=== PATIENT | male | born 1950 | race Asian ===

== ENCOUNTER 2020-01-14 18:12 | Inpatient (IN) | payer MEDICARE ==
[~2020-01-14] VITALS: Ht 170.2 cm; Wt 64.0 kg
[2020-01-14 18:19] VITALS: BP 145/80
--- NOTE | 2020-01-14 18:23 | Emergency Room Report ---
History of Present Illness General Chief Complaint: Altered Mental Status Source: Patient, EMS Present Illness HPI Disclaimer: Please note that this report is being documented using DRAGON technology. This can lead to erroneous entry secondary to incorrect interpretation by the dictating instrument. HPI: 69-year-old male on no medical history presents by EMS for suspected overdose. The patient was found laying on the floor at his hotel by hotel staff. He was not responsive. Next to him was an empty bottle of temazepam, 30 mg tablets with a prescription for 30 pills. EMS also brought a note written an unknown language that was found next to the patient and the bottle of pills. Patient had sonorous respirations en route, EMS noted cough. He arrives slightly febrile. He awakens to painful stimuli. Cannot obtain any verbal response from patient. PMH: Unable to obtain PSH: Unable to obtain Allergies: Unable to obtain Social Hx: Unable to obtain Allergies: Coded Allergies: UNABLE TO ASSESS (Unverified , 01/14/20) COVID-19 Screening Contact w/high risk pt: No Experienced COVID-19 symptoms?: Yes COVID-19 Testing performed [employer]ER: No Nursing Documentation-PMH Past Medical History: No History, Except For Review of Systems All Other Systems: negative except mentioned in HPI Physical Exam Vital Signs Date Time Temp Pulse Resp B/P (MAP) Pulse Ox O2 Delivery O2 Flow Rate FiO2 01/14/20 18:09 98.1 91 16 125/65 (85) 95 Room Air General: Somnolent, no verbal response HEENT: NC/AT. EOMI. Cardiovascular: Borderline tachycardia. No murmur appreciated. Resp: Tachypnea. Sonorous respirations. Intermittent cough. Abdomen: Abdomen is soft, nondistended. Nontender Skin: Intact. No abrasions, laceration or rash over the exposed skin MSK: Normal tone and bulk. Moving all extremities. No obvious deformity. Neuro: Somnolent. GCS 9. Procedures Critical Care Time Critical Care Time Total critical care time: Approximately 45 minutes Due to a high probability of clinically significant, life threatening deterioration, the patient required the highest level of preparedness to intervene emergently and I personally spent this critical care time directly and personally managing the patient. This critical care time included obtaining a history, examining the patient, pulse oximetry, ordering and reviewing studies , ordering treatments, evaluating response to treatment and updating management plan as needed, frequent reassessment and discussion with other providers as well as arranging for ultimate disposition. This critical to care time was performed to assess and manage the high probability of life-threatening deterioration that could result in multiorgan failure. This critical care time is separate from the separately billable procedures and treating other patients. Medical Decision Making Diagnostic Impression: Primary Impression: Altered mental status Additional Impressions: Febrile illness Elevated WBC count Benzodiazepine overdose ER Course 69-year-old male brought in for suspected benzodiazepine overdose with altered mental status. Differential includes was not limited to intentional ingestion, intoxication, electrolyte abnormality, occult injury. Broad labs obtained and returned showing an elevated white count but otherwise chemistry, tox screen, urinalysis within normal limits. CT scan of the head did not show evidence of acute trauma or other significant findings. Patient's heart rate has improved however the patient was febrile by axillary temperature. COVID-19 negative. No evidence of infiltrate on chest x-ray. Cultures and lactate sent. Patient was given ceftriaxone. 1 of our technicians was able to read Khmer and coated the note left by the patient. It states that the patient was tested negative for COVID-19, he apologized to hospital staff for the inconvenience, includes his family is phone numbers. We contacted family who stated that he has been severely depressed and had a suicide attempt last month. Patient will require psychiatric evaluation and inpatient admission. His mentation improves but is not returned to baseline. He makes eye contact and is trying to respond though I suspect there is a language barrier as well. He will be admitted for further work-up and monitoring. Discussed with poison control who recommends further close monitoring and additional benzodiazepines should he become agitated or show signs of acute withdrawal. Admitted to panel physician, Dr. Lynch. Laboratory Tests Test 01/14/20 18:30 White Blood Count 18.0 K/UL (4.8-10.8) H Red Blood Count 4.32 M/UL (4.70-6.10) L Hemoglobin 13.0 G/DL (14.2-18.0) L Hematocrit 40.2 % (42.0-52.0) L Mean Corpuscular Volume 93 FL (80-99) Mean Corpuscular Hemoglobin 30.1 PG (27.0-31.0) Mean Corpuscular Hemoglobin Concent 32.4 G/DL (32.0-36.0) Red Cell Distribution Width 12.8 % (11.6-14.8) Platelet Count 210 K/UL (150-450) Mean Platelet Volume 10.4 FL (6.5-10.1) H Neutrophils (%) (Auto) 86.9 % (45.0-75.0) H Lymphocytes (%) (Auto) 8.0 % (20.0-45.0) L Monocytes (%) (Auto) 4.0 % (1.0-10.0) Eosinophils (%) (Auto) 0.3 % (0.0-3.0) Basophils (%) (Auto) 0.8 % (0.0-2.0) Urine Color Pale yellow Urine Appearance Clear Urine pH 5 (4.5-8.0) Urine Specific [place] 1.030 (1.005-1.035) Urine Protein Negative (NEGATIVE) Urine Glucose (UA) Negative (NEGATIVE) Urine Ketones Negative (NEGATIVE) Urine Blood Negative (NEGATIVE) Urine Nitrite Negative (NEGATIVE) Urine Bilirubin Negative (NEGATIVE) Urine Urobilinogen Normal MG/DL (0.0-1.0) Urine Leukocyte Esterase Negative (NEGATIVE) Sodium Level 145 MMOL/L (136-145) Potassium Level 3.9 MMOL/L (3.5-5.1) Chloride Level 107 MMOL/L (98-107) Carbon Dioxide Level 26 MMOL/L (21-32) Anion Gap 12 mmol/L (5-15) Blood Urea Nitrogen 34 mg/dL (7-18) H Creatinine 1.0 MG/DL (0.55-1.30) Estimated Glomerular Filtration Rate > 60 mL/min (>60) Glucose Level 168 MG/DL (74-106) H Calcium Level 9.3 MG/DL (8.5-10.1) Total Bilirubin 0.4 MG/DL (0.2-1.0) Aspartate Amino Transferase (AST) 22 U/L (15-37) Alanine Aminotransferase (ALT) 15 U/L (12-78) Alkaline Phosphatase 45 U/L (46-116) L Troponin I 0.000 ng/mL (0.000-0.056) Total Protein 8.0 G/DL (6.4-8.2) Albumin 4.2 G/DL (3.4-5.0) Globulin 3.8 g/dL Albumin/Globulin Ratio 1.1 (1.0-2.7) Salicylates Level 1.7 ug/mL (2.8-20) L Urine Opiates Screen Negative (NEGATIVE) Acetaminophen Level < 2 MCG/ML (10-30) L Urine Barbiturates Screen Negative (NEGATIVE) Phencyclidine (PCP) Screen Negative (NEGATIVE) Urine Amphetamines Screen Negative (NEGATIVE) Urine Benzodiazepines Screen Negative (NEGATIVE) Urine Cocaine Screen Negative (NEGATIVE) Urine Marijuana (THC) Screen Negative (NEGATIVE) Serum Alcohol < 3 mg/dL Microbiology Date/Time Source Procedure Growth Status 01/14/20 18:30 Nasopharynx SARS-CoV-2 RdRp Gene Assay - Final Complete EKG Diagnostic Results EKG Time: 18:36 Rate: tachycardiac Other Impression Sinus tachycardia, left axis deviation, incomplete right bundle branch block pattern. No ST segment changes. Rhythm Strip Diag. Results Rhythm Strip Time: 18:36 EP Interpretation: yes Rate: 109 Rhythm: NSR Last Vital Signs Date Time Temp Pulse Resp B/P (MAP) Pulse Ox O2 Delivery O2 Flow Rate FiO2 01/14/20 18:09 98.1 91 16 125/65 (85) 95 Room Air Disposition: ADMITTED INPATIENT Condition: Serious Nathan Jha MD Jan 14, 2020 18:23
[2020-01-14 19:00] LABS: HEMATOCRIT 40.2 % (42.0-52.0); MEAN CORPUSCULAR VOLUME 93 FL (80-99); PLATELET COUNT 210 K/UL (150-450); RED BLOOD COUNT 4.32 M/UL (4.70-6.10); RED CELL DISTRIBUTION WIDTH 12.8 % (11.6-14.8)
[2020-01-14 19:02] LABS: BASOPHILS % (AUTO) 0.8 % (0.0-2.0); EOSINOPHILS % (AUTO) 0.3 % (0.0-3.0); NEUTROPHILS % (AUTO) 86.9 % (45.0-75.0)
[2020-01-14 19:05] LABS: APPEARANCE,URINE CLEAR; BILIRUBIN, URINE NEGATIVE (NEGATIVE); COLOR,URINE PALE YELLOW; GLUCOSE, URINE (UA) NEGATIVE (NEGATIVE); KETONES,URINE NEGATIVE (NEGATIVE); LEUKOCYTE ESTERASE ,URINE NEGATIVE (NEGATIVE); NITRITE,URINE NEGATIVE (NEGATIVE); PH,URINE 5 (4.5-8.0); PROTEIN,URINE NEGATIVE (NEGATIVE); UROBILINOGEN,URINE NORMAL MG/DL (0.0-1.0)
[2020-01-14 19:12] LABS: ANION GAP 12 mmol/L (5-15); BLOOD UREA NITROGEN 34 mg/dL (7-18); CALCIUM 9.3 MG/DL (8.5-10.1); CARBON DIOXIDE 26 MMOL/L (21-32); CHLORIDE 107 MMOL/L (98-107); POTASSIUM 3.9 MMOL/L (3.5-5.1); SODIUM 145 MMOL/L (136-145)
[2020-01-14 19:17] LABS: ALANINE AMINOTRANSFERASE 15 U/L (12-78); ALBUMIN 4.2 G/DL (3.4-5.0); ALBUMIN/GLOBULIN RATIO 1.1 (1.0-2.7); ALKALINE PHOSPHATASE 45 U/L (46-116); ASPARTATE AMINO TRANSFERASE 22 U/L (15-37); BILIRUBIN,TOTAL 0.4 MG/DL (0.2-1.0)
[2020-01-14 19:45] VITALS: BP 153/90
[2020-01-14] MEDS ORDERED: cefTRIAXone 1 GM in NS 55 ML IVPB ONE (19:45)
[2020-01-14] MEDS ORDERED: Acetaminophen 650 MG SUPP RECTAL ONE (19:45)
--- NOTE | 2020-01-14 20:28 | Diagnostic Imaging Report ---
EXAM: XR Chest, 1 View CLINICAL HISTORY: COUGH TECHNIQUE: Frontal view of the chest. COMPARISON: None. FINDINGS: Lungs: Right infrahilar atelectasis. Pleural space: Unremarkable. No pneumothorax. Heart: Unremarkable. No cardiomegaly. Mediastinum: Unremarkable. Bones/joints: Degenerative disease of the right shoulder. Vasculature: Atherosclerotic disease of aorta. Fullness of the central markings which may indicate mild vascular congestion. Other findings: Decreased inspiration. IMPRESSION: Right infrahilar atelectasis. Possible mild vascular congestion versus vascular crowding from decreased inspiration.
--- NOTE | 2020-01-14 20:34 | Diagnostic Imaging Report ---
EXAM: CT Head Without Intravenous Contrast CLINICAL HISTORY: AMS TECHNIQUE: Axial computed tomography images of the head/brain without intravenous contrast. CTDI is 53.4 mGy and DLP is 1045.5 mGy-cm. One or more of the following dose reduction techniques were used: automated exposure control, adjustment of the mA and/or kV according to patient size, use of iterative reconstruction technique. COMPARISON: None. FINDINGS: Brain: Mild to moderate generalized brain atrophy. Decreased attenuation involving deep white matter compatible with microangiopathic white matter disease. No hemorrhage. Ventricles: Unremarkable. No ventriculomegaly. Bones/joints: Unremarkable. No acute fracture. Soft tissues: Unremarkable. Sinuses: Unremarkable as visualized. No acute sinusitis. Mastoid air cells: Unremarkable as visualized. No mastoid effusion. IMPRESSION: Chronic changes as described. No acute intracranial hemorrhage or space-occupying lesion.
[2020-01-14 21:15] VITALS: BP 126/79
[2020-01-14] MEDS ORDERED: Acetaminophen 500mg (ES) tab ORAL PRN (21:30)
[2020-01-14] MEDS: D5NS 1,000 ML IV SCH (21:30)
[2020-01-15] VITALS: BP 104/62
[2020-01-15 04:00] VITALS: BP 134/71
[2020-01-15] MEDS: Piperacillin/Tazobactam 3.375 GM in NS 110 ML IVPB SCH ×3 (06:00→21:09)
[2020-01-15 07:36] LABS: HEMATOCRIT 40.7 % (42.0-52.0); HEMOGLOBIN 13.2 G/DL (14.2-18.0); MEAN CORPUSCULAR VOLUME 91 FL (80-99); PLATELET COUNT 191 K/UL (150-450); RED BLOOD COUNT 4.48 M/UL (4.70-6.10); RED CELL DISTRIBUTION WIDTH 12.2 % (11.6-14.8); WHITE BLOOD COUNT 14.6 K/UL (4.8-10.8)
[2020-01-15 07:55] LABS: ALANINE AMINOTRANSFERASE 16 U/L (12-78); ALBUMIN 3.6 G/DL (3.4-5.0); ALKALINE PHOSPHATASE 39 U/L (46-116); ANION GAP 11 mmol/L (5-15); ASPARTATE AMINO TRANSFERASE 35 U/L (15-37); BILIRUBIN,TOTAL 0.5 MG/DL (0.2-1.0); BLOOD UREA NITROGEN 29 mg/dL (7-18); CALCIUM 9.3 MG/DL (8.5-10.1); CARBON DIOXIDE 24 MMOL/L (21-32); CHLORIDE 110 MMOL/L (98-107); CREATININE 1.1 MG/DL (0.55-1.30); POTASSIUM 3.9 MMOL/L (3.5-5.1); SODIUM 145 MMOL/L (136-145)
[2020-01-15 08:00] VITALS: BP 116/65
--- NOTE | 2020-01-15 08:44 | History and Physical Report ---
DATE OF ADMISSION: 01/14/2020 CHIEF COMPLAINT: Suicide attempt. HISTORY OF PRESENT ILLNESS: The patient is a 69-year-old male. He has a history of hypertension and diabetes. According to family members and EMS, he was apparently found outside of his motel room with an empty bottle of Restoril. He had apparently told family members that he intended to hurt himself. According to the patient's son, he has been depressed since being isolated at home because of COVID restrictions. On evaluation in the emergency room, the patient was hypoxic and placed on O2. He is currently on 15 liters non-rebreather. He had a low-grade temperature. Chest x-ray showed a possible right-sided infiltrate. Head CT was also unremarkable. He is now admitted for further evaluation and care. PAST MEDICAL HISTORY: History of diabetes and hypertension. PAST SURGICAL HISTORY: None. CURRENT MEDICATIONS: The patient does not recall. ALLERGIES: None. FAMILY HISTORY: None. SOCIAL HISTORY: There is no known history of tobacco, ethanol, or drugs. REVIEW OF SYSTEMS: GENERAL: No fevers or chills. HEENT: No headaches or visual changes. CARDIOPULMONARY: No chest pain or shortness of breath. GASTROINTESTINAL: No nausea or vomiting. GENITOURINARY: No urgency or frequency. MUSCULOSKELETAL: No joint pain or swelling. NEUROLOGIC: No history of seizures. PHYSICAL EXAMINATION: VITAL SIGNS: Temperature 99.3, pulse 93, respirations 20, and blood pressure 134/71. GENERAL: The patient is well developed, in no apparent distress. HEART: Regular rate and rhythm. LUNGS: Significant for right-sided rales. ABDOMEN: Soft, nontender, nondistended. EXTREMITIES: Without clubbing or cyanosis. The patient moves all four extremities. NEUROLOGIC: His sensation is intact. He is somewhat anxious. LABORATORY DATA: Sodium 145, potassium 3.9, chloride 106, bicarb 26, BUN 34, and creatinine 1. White count was 18,000, hemoglobin 13. ASSESSMENT: This is a 69-year-old male with a history of hypertension and diabetes, admitted with suicide attempt as well as likely aspiration pneumonia. PLAN: 1. Sitter. 2. Psychiatric consultation. 3. Supplemental oxygen. 4. IV antibiotics. 5. Monitor blood sugars. 6. Plan of care has been discussed with the patient's son. Serg Lynch M.D. DR: JACKY JOB#: [id number] CC:
[2020-01-15] MEDS: Heparin 5000 units/ml inj SUBQ SCH ×2 (09:08→21:12)
[2020-01-15] MEDS: D5NS 1,000 ML IV SCH (10:53)
--- NOTE | 2020-01-15 11:59 | Consultation ---
DATE OF CONSULTATION: 01/15/2020 INFECTIOUS DISEASE CONSULTATION CONSULTING PHYSICIAN: Mary Monte MD. REFERRING PHYSICIAN: Segr Lynch MD. REASON FOR CONSULTATION: Aspiration pneumonia. HISTORY OF PRESENTING ILLNESS: This is a 69-year-old gentleman with history of diabetes and hypertension, who was apparently found outside his motel room with an empty bottle of Restoril. Apparently, he tried to hurt himself. He has been depressed and has been isolated. He was found to have pneumonia. There was a concern for aspiration and an Infectious Diseases consultation has been obtained for antibiotics. PAST MEDICAL HISTORY: 1. History of diabetes. 2. Hypertension. SOCIAL HISTORY: No history of smoking, alcohol, or drug use. FAMILY HISTORY: Noncontributory. REVIEW OF SYSTEMS: RESPIRATORY: No fever, chills, cough, shortness of breath, or chest pain. CARDIAC: No chest pain. No palpitation. No dizziness. No syncope. GASTROINTESTINAL: No nausea. No vomiting. No abdominal pain or diarrhea. MEDICATIONS: As an inpatient, he is on subcutaneous heparin, Protonix, Zosyn, Tylenol, and Zofran. ALLERGIES: Unknown. PHYSICAL EXAMINATION: VITAL SIGNS: Temperature 97.8, T-max of 101.4, pulse 87 respiratory rate 22, and blood pressure 116/65. O2 saturation of 90% on 15 liters of oxygen. HEENT: Pupils are equally reactive to light and accommodation. Mouth appears clean without thrush. NECK: Supple. No adenopathy. No JVD. CARDIOVASCULAR: Regular rate and rhythm. No murmurs. LUNGS: Clear to auscultation bilaterally. No crackles. No wheezes. ABDOMEN: Soft, nontender. No organomegaly. EXTREMITIES: No cyanosis, no clubbing, no edema. LABORATORY AND DIAGNOSTIC DATA: White count of 18 yesterday, white count of 14.6 today; hemoglobin 13.2; hematocrit 40.7; MCV 91; platelet count of 191,000 with neutrophils of 86%. Sodium 145, potassium 3.9, chloride 110, bicarb 24, BUN 29, creatinine 1.1. Glucose 167. Calcium 9.3. Total bilirubin 0.5, AST 35, ALT 16, and alkaline phosphatase 39. Total protein 7.2, albumin 3.6. UA is showing nitrite negative, LE negative. On 01/14/2020, COVID-19 test is negative. Chest x-ray showing right infrahilar atelectasis, possible mild congestion. CT head showing no acute hemorrhage, chronic changes noted. ASSESSMENT: This is a 69-year-old gentleman with history of diabetes and hypertension, who was found outside his motel room with a empty bottle of Restoril. Apparently, he was trying to hurt himself and now comes in hypoxic and is found to have, 1. Possible aspiration pneumonia. He is on 15 liters on non-rebreather mask. 2. He is COVID-19 negative. 3. Diabetes. 4. Hypertension. PLAN: 1. Continue Zosyn. 2. We will order sputum for Gram stain and culture. 3. We will follow up cultures and adjust antibiotics accordingly. I would like to thank Dr. Lynch for this consultation. Mary Monte M.D. DR: DEEPTI JOB#: [id number] CC:
[2020-01-15 12:00] VITALS: BP 117/68
[2020-01-15 16:00] VITALS: BP 116/65
--- NOTE | 2020-01-15 16:19 | Cardiology Progress Note ---
Subjective DATE OF SERVICE: Jan 15, 2020 Very weak, but alert Tolerating po intake No N/V/D +cough noted MONITOR: sinus tachycardia to NSR Objective Last 24 Hour Vital Signs Date Time Temp Pulse Resp B/P (MAP) Pulse Ox O2 Delivery O2 Flow Rate FiO2 01/15/20 16:00 97.8 87 22 116/65 (82) 90 01/15/20 12:00 90 01/15/20 12:00 98.8 83 22 117/68 (84) 99 01/15/20 08:05 Non-Rebreather 15.0 01/15/20 08:00 86 01/15/20 08:00 97.8 87 22 116/65 (82) 90 01/15/20 04:00 93 01/15/20 04:00 99.3 93 20 134/71 (92) 93 01/15/20 01:47 Non-Rebreather 15.0 01/15/20 00:00 100.8 89 22 104/62 (76) 93 01/14/20 23:40 81 01/14/20 22:05 99.0 94 21 126/79 98 Non-Rebreather 15.0 01/14/20 21:15 99.0 94 21 126/79 98 Non-Rebreather 15.0 01/14/20 20:33 101.4 01/14/20 19:45 101.0 134 26 153/90 95 Non-Rebreather 15.0 01/14/20 19:10 101.0 01/14/20 18:19 106 30 145/80 98 Non-Rebreather 15.0 01/14/20 18:19 106 22 Room Air 01/14/20 18:09 98.1 91 16 125/65 (85) 95 Room Air ROS: unchanged from my dictation for 01/14/20 HEENT: normal ENT inspection - dry MM's RHYTHM: NSR, ST LUNGS: diminished breath sounds, right-sided rhonchi CARDIAC: normal rate, regular rhythm, normal S1 and S2 ABDOMEN: normal bowel sounds, soft EXTREMITIES: no calf tenderness, No edema Laboratory Tests Test 01/14/20 18:30 01/15/20 05:35 White Blood Count 18.0 K/UL (4.8-10.8) H 14.6 K/UL (4.8-10.8) H Red Blood Count 4.32 M/UL (4.70-6.10) L 4.48 M/UL (4.70-6.10) L Hemoglobin 13.0 G/DL (14.2-18.0) L 13.2 G/DL (14.2-18.0) L Hematocrit 40.2 % (42.0-52.0) L 40.7 % (42.0-52.0) L Mean Corpuscular Volume 93 FL (80-99) 91 FL (80-99) Mean Corpuscular Hemoglobin 30.1 PG (27.0-31.0) 29.4 PG (27.0-31.0) Mean Corpuscular Hemoglobin Concent 32.4 G/DL (32.0-36.0) 32.4 G/DL (32.0-36.0) Red Cell Distribution Width 12.8 % (11.6-14.8) 12.2 % (11.6-14.8) Platelet Count 210 K/UL (150-450) 191 K/UL (150-450) Mean Platelet Volume 10.4 FL (6.5-10.1) H 10.3 FL (6.5-10.1) H Neutrophils (%) (Auto) 86.9 % (45.0-75.0) H % (45.0-75.0) Lymphocytes (%) (Auto) 8.0 % (20.0-45.0) L % (20.0-45.0) Monocytes (%) (Auto) 4.0 % (1.0-10.0) % (1.0-10.0) Eosinophils (%) (Auto) 0.3 % (0.0-3.0) % (0.0-3.0) Basophils (%) (Auto) 0.8 % (0.0-2.0) % (0.0-2.0) Urine Color Pale yellow Urine Appearance Clear Urine pH 5 (4.5-8.0) Urine Specific [place] 1.030 (1.005-1.035) Urine Protein Negative (NEGATIVE) Urine Glucose (UA) Negative (NEGATIVE) Urine Ketones Negative (NEGATIVE) Urine Blood Negative (NEGATIVE) Urine Nitrite Negative (NEGATIVE) Urine Bilirubin Negative (NEGATIVE) Urine Urobilinogen Normal MG/DL (0.0-1.0) Urine Leukocyte Esterase Negative (NEGATIVE) Sodium Level 145 MMOL/L (136-145) 145 MMOL/L (136-145) Potassium Level 3.9 MMOL/L (3.5-5.1) 3.9 MMOL/L (3.5-5.1) Chloride Level 107 MMOL/L (98-107) 110 MMOL/L (98-107) H Carbon Dioxide Level 26 MMOL/L (21-32) 24 MMOL/L (21-32) Anion Gap 12 mmol/L (5-15) 11 mmol/L (5-15) Blood Urea Nitrogen 34 mg/dL (7-18) H 29 mg/dL (7-18) H Creatinine 1.0 MG/DL (0.55-1.30) 1.1 MG/DL (0.55-1.30) Estimat Glomerular Filtration Rate > 60 mL/min (>60) > 60 mL/min (>60) Glucose Level 168 MG/DL (74-106) H 167 MG/DL (74-106) H Calcium Level 9.3 MG/DL (8.5-10.1) 9.3 MG/DL (8.5-10.1) Total Bilirubin 0.4 MG/DL (0.2-1.0) 0.5 MG/DL (0.2-1.0) Aspartate Amino Transf (AST/SGOT) 22 U/L (15-37) 35 U/L (15-37) Alanine Aminotransferase (ALT/SGPT) 15 U/L (12-78) 16 U/L (12-78) Alkaline Phosphatase 45 U/L (46-116) L 39 U/L (46-116) L Troponin I 0.000 ng/mL (0.000-0.056) Total Protein 8.0 G/DL (6.4-8.2) 7.2 G/DL (6.4-8.2) Albumin 4.2 G/DL (3.4-5.0) 3.6 G/DL (3.4-5.0) Globulin 3.8 g/dL 3.6 g/dL Albumin/Globulin Ratio 1.1 (1.0-2.7) 1.0 (1.0-2.7) Salicylates Level 1.7 ug/mL (2.8-20) L Urine Opiates Screen Negative (NEGATIVE) Acetaminophen Level < 2 MCG/ML (10-30) L Urine Barbiturates Screen Negative (NEGATIVE) Phencyclidine (PCP) Screen Negative (NEGATIVE) Urine Amphetamines Screen Negative (NEGATIVE) Urine Benzodiazepines Screen Negative (NEGATIVE) Urine Cocaine Screen Negative (NEGATIVE) Urine Marijuana (THC) Screen Negative (NEGATIVE) Serum Alcohol < 3 mg/dL Differential Total Cells Counted 100 Neutrophils % (Manual) 75 % (45-75) Lymphocytes % (Manual) 17 % (20-45) L Monocytes % (Manual) 2 % (1-10) Eosinophils % (Manual) 0 % (0-3) Basophils % (Manual) 0 % (0-2) Band Neutrophils 6 % (0-8) Platelet Estimate Adequate Platelet Morphology Normal Red Blood Cell Morphology Normal Lactic Acid Level 1.40 mmol/L (0.4-2.0) Microbiology Date/Time Source Procedure Growth Status 01/14/20 18:30 Nasopharynx SARS-CoV-2 RdRp Gene Assay - Final Complete Assessment/Plan Assessment/Plan Aspiration PNA Sinus Tachycardia No clinical signs of acute CHF Probable chronic diastolic CHF Mild dehydration/hypernatremia NIDDM with rising glucose Negative urine tox screen Hypertension Hypothyroidism Hypotonic IVF - dextrose discont'd Sputum culture Abx per ID Swallow eval Trend BNP Repeat CXR Cont'd telemetry Check TSH Dieudonne Maldonado MD Jan 15, 2020 16:19
[2020-01-15] MEDS ORDERED: NovoLOG Insulin Flexpen SUBQ SCH (16:50)
[2020-01-15] MEDS: NovoLOG Insulin Flexpen SUBQ SCH ×2 (17:00→21:15)
[2020-01-15] MEDS: Potassium Chloride 20 MEQ in 1/2 NS 1000ml 1,000 ML IV SCH (17:11)
[2020-01-15 20:00] VITALS: BP 118/64
[2020-01-16] VITALS: BP 119/66
[2020-01-16 04:00] VITALS: BP 101/55
[2020-01-16] MEDS: Piperacillin/Tazobactam 3.375 GM in NS 110 ML IVPB SCH (05:57)
[2020-01-16] MEDS: Potassium Chloride 20 MEQ in 1/2 NS 1000ml 1,000 ML IV SCH ×2 (05:58→20:36)
[2020-01-16] MEDS: NovoLOG Insulin Flexpen SUBQ SCH ×4 (06:17→20:38)
[2020-01-16 07:25] LABS: BASOPHILS % (AUTO) 0.6 % (0.0-2.0); EOSINOPHILS % (AUTO) 2.2 % (0.0-3.0); HEMATOCRIT 31.1 % (42.0-52.0); HEMOGLOBIN 10.5 G/DL (14.2-18.0); LYMPHOCYTES % (AUTO) 12.6 % (20.0-45.0); MEAN CORPUSCULAR VOLUME 90 FL (80-99); MONOCYTES % (AUTO) 3.3 % (1.0-10.0); NEUTROPHILS % (AUTO) 81.3 % (45.0-75.0); PLATELET COUNT 153 K/UL (150-450); RED BLOOD COUNT 3.47 M/UL (4.70-6.10); RED CELL DISTRIBUTION WIDTH 11.9 % (11.6-14.8); WHITE BLOOD COUNT 15.7 K/UL (4.8-10.8)
--- NOTE | 2020-01-16 07:30 | Consultation ---
DATE OF CONSULTATION: CONSULTING PHYSICIAN: Dean Ferris M.D. HISTORY OF PRESENT ILLNESS: This is a 69-year-old [place] male with a history of depression and anxiety, who has been admitted to the hospital status post overdose on his Restoril pills. The patient has a history of hypertension and diabetes. The patient was found outside of his motel room with an empty bottle of Restoril but he is stating he did not want to kill himself or attempt any suicide. He stated that he had difficulty sleeping. He was minimizing his symptoms. He initially stated that he is not depressed, that he is doing well, and then he stated that he has been having more depressed due to COVID situation. He appeared depressed, anhedonia, worthlessness, however, he is minimizing his symptoms. PAST PSYCHIATRIC HISTORY: He stated that he has a history of depression and anxiety. He has been taking Restoril for insomnia. He is not on any other psychotropic medication. PAST MEDICAL HISTORY: Hypertension. ALLERGIES: No known drug allergies. SUBSTANCE ABUSE HISTORY: No known history of illicit drugs or alcohol. Denying social drinking as well. MENTAL STATUS EXAMINATION: The patient is alert and oriented times self, place, situation. He is . His mood is depressed. Affect is flat. Thought process, linear and goal oriented. Thought content, denies any suicidal or homicidal ideation. Cognition is improved. Insight and judgment is fair. ASSESSMENT: [place] I Major depressive disorder. Anxiety disorder. [place] II Deferred. [place] III Status post overdose on Restoril. [place] IV Low. [place] V 50 PLAN: 1. Lexapro 10 mg in the morning. 2. Remeron 7.5 at bedtime. 3. DC . 4. We will continue to follow and readjust the medications. Dean Ferris M.D. DR: SHIVANI JOB#: [id number] CC:
[2020-01-16 08:00] VITALS: BP 130/64
[2020-01-16 08:16] LABS: ALANINE AMINOTRANSFERASE 16 U/L (12-78); ALBUMIN 2.9 G/DL (3.4-5.0); ALBUMIN/GLOBULIN RATIO 0.9 (1.0-2.7); ALKALINE PHOSPHATASE 40 U/L (46-116); ANION GAP 9 mmol/L (5-15); ASPARTATE AMINO TRANSFERASE 30 U/L (15-37); BILIRUBIN,TOTAL 0.3 MG/DL (0.2-1.0); BLOOD UREA NITROGEN 20 mg/dL (7-18); CALCIUM 8.7 MG/DL (8.5-10.1); CARBON DIOXIDE 25 MMOL/L (21-32); CHLORIDE 110 MMOL/L (98-107); CREATININE 1.2 MG/DL (0.55-1.30); POTASSIUM 3.7 MMOL/L (3.5-5.1); SODIUM 144 MMOL/L (136-145)
[2020-01-16] MEDS: Heparin 5000 units/ml inj SUBQ SCH ×2 (08:41→20:39)
--- NOTE | 2020-01-16 08:42 | General Progress Note ---
Assessment/Plan Problem List: (1) Aspiration pneumonia ICD Codes: J69.0 - Pneumonitis due to inhalation of food and vomit SNOMED: 688233213 (2) Sepsis ICD Codes: A41.9 - Sepsis, unspecified organism SNOMED: 08551091 (3) Elevated WBC count ICD Codes: D72.829 - Elevated white blood cell count, unspecified SNOMED: 053438611, 472150581 (4) Benzodiazepine overdose ICD Codes: T42.4X1A - Poisoning by benzodiazepines, accidental (unintentional) , initial encounter SNOMED: 071934138, 367870558 (5) Febrile illness ICD Codes: R50.9 - Fever, unspecified SNOMED: 795707562, 287882308 (6) Altered mental status ICD Codes: R41.82 - Altered mental status, unspecified SNOMED: 499765809, 899019337 Status: stable Assessment/Plan: cont iv abx wean fio2 check swallow eval monitor cxr follow up cultures iv abx per ID dvt/stress ulcer prophylaxis psych rx thyroid replacement Subjective ROS Limited/Unobtainable: No Constitutional: Reports: malaise, weakness HEENT: Reports: no symptoms Cardiovascular: Reports: no symptoms Respiratory: Reports: cough, shortness of breath Gastrointestinal/Abdominal: Reports: no symptoms Genitourinary: Reports: no symptoms Neurologic/Psychiatric: Reports: anxiety, depressed Endocrine: Reports: no symptoms Hematologic/Lymphatic: Reports: no symptoms Allergies: Coded Allergies: No Known Allergies (Unverified , 01/15/20) All Systems: reviewed and negative except above Subjective no events. remains on facemask at 10L. was on 15L yesterday. has been more cooperative with care. WBC remains elevated. labs reviewed. tsh elevated Objective Last 24 Hour Vital Signs Date Time Temp Pulse Resp B/P (MAP) Pulse Ox O2 Delivery O2 Flow Rate FiO2 01/16/20 04:00 96.6 73 16 101/55 (70) 100 01/16/20 04:00 74 01/16/20 00:00 88 01/16/20 00:00 97.3 77 18 119/66 (83) 98 01/15/20 21:00 Non-Rebreather 10.0 01/15/20 20:00 97.7 78 20 118/64 (82) 97 01/15/20 20:00 81 01/15/20 16:00 78 01/15/20 16:00 97.8 87 22 116/65 (82) 90 01/15/20 12:00 90 01/15/20 12:00 98.8 83 22 117/68 (84) 99 Intake and Output 01/15/20 01/16/20 19:00 07:00 Intake Total 446.25 ml 750 ml Balance 446.25 ml 750 ml Intake Oral 320 ml IV Total 126.25 ml 750 ml # Voids 2 2 # Bowel Movements 2 2 Laboratory Tests 01/16/20 05:32: White Blood Count 15.7H, Red Blood Count 3.47L, Hemoglobin 10.5L, Hematocrit 31.1L, Mean Corpuscular Volume 90, Mean Corpuscular Hemoglobin 30.3, Mean Corpuscular Hemoglobin Concent 33.8, Red Cell Distribution Width 11.9, Platelet Count 153, Mean Platelet Volume 8.9, Neutrophils (%) (Auto) 81.3H, Lymphocytes ( %) (Auto) 12.6L, Monocytes (%) (Auto) 3.3, Eosinophils (%) (Auto) 2.2, Basophils (%) (Auto) 0.6, Sodium Level 144, Potassium Level 3.7, Chloride Level 110H, Carbon Dioxide Level 25, Anion Gap 9, Blood Urea Nitrogen 20H, Creatinine 1.2, Estimat Glomerular Filtration Rate 59.7, Glucose Level 146H, Calcium Level 8.7, Magnesium Level 2.0, Total Bilirubin 0.3, Aspartate Amino Transf (AST/SGOT ) 30, Alanine Aminotransferase (ALT/SGPT) 16, Alkaline Phosphatase 40L, Total Protein 6.3L, Albumin 2.9L, Globulin 3.4, Albumin/Globulin Ratio 0.9L, Thyroid Stimulating Hormone (TSH) 5.413H Height (Feet): 5 Height (Inches): 7.00 Weight (Pounds): 155 General Appearance: WD/WN, alert, confused EENT: normal ENT inspection Neck: non-tender, normal alignment, supple Cardiovascular: normal rate, regular rhythm Respiratory/Chest: crackles/rales, rhonchi - right Abdomen: normal bowel sounds, non tender, soft, no organomegaly Edema: no edema noted Arm (L), no edema noted Arm (R) Neurologic: compliance analyst II-XII grossly normal, alert, responsive Skin: normal pigmentation Lymphatic: normal anterior cervical (L), normal anterior cervical (R) Serg Lynch MD Jan 16, 2020 08:42
--- NOTE | 2020-01-16 09:29 | Consultation ---
DATE OF CONSULTATION: 01/16/2020 PULMONARY CONSULTATION CONSULTING PHYSICIAN: Dakota Rosas MD. REASON FOR CONSULTATION: Atelectasis, pulmonary vascular congestion, possible pneumonia. HISTORY OF PRESENT ILLNESS: This is a 69-year-old patient who presents through the emergency room. The patient was seen, evaluated, and admitted. The patient with history of hypertension and diabetes. The patient was found outside a motel room with an empty bottle of Restoril, apparently intended to hurt himself. The patient also had abnormal x-ray. The patient apparently had been fairly isolated. The patient's chest x-ray with possible right-sided infiltrate. I was called to assist and evaluate the patient. Difficult to assess with any history. PAST MEDICAL HISTORY: Diabetes and hypertension. PAST SURGICAL HISTORY: None. MEDICATIONS: Reviewed. ALLERGIES: Reviewed. FAMILY HISTORY: Noncontributory to above. SOCIAL HISTORY: Nonsmoker and nondrinker. The patient is unemployed at this time. REVIEW OF SYSTEMS: Difficult to obtain. PHYSICAL EXAMINATION: GENERAL: An ill-appearing male. VITAL SIGNS: Temperature 96.6, pulse 74, respirations 16, blood pressure 101/55. Saturation 100%. HEENT: Negative. The patient's extraocular movements are grossly intact. NECK: Supple. No adenopathy. LUNGS: With moderate air entry. Minimal crackles in right base. CARDIAC: S1, S2. Regular rate and rhythm without murmurs, rubs, or gallops. ABDOMEN: Soft and nondistended. EXTREMITIES: No cyanosis or clubbing. NEUROLOGIC: Grossly nonfocal. Alert. LABORATORY DATA: Reviewed, notable for white cell count of 15.7, hemoglobin 10.5. Chemistries noted. BUN 20, creatinine 1.2. Albumin 2.9. Chest x-ray with an infiltrate. IMPRESSION: Possible suicidal attempt, likely aspiration with mild pneumonia, hypertension, diabetes, and toxic metabolic encephalopathy. RECOMMENDATIONS: 1. Supportive care. 2. IV antibiotics. 3. Oxygen therapy. 4. Incentive spirometry. 5. Monitor x-ray. 6. Monitor for further changes. 7. Discussed psychiatric evaluation and follow further intervention and recommendations. 8. We will follow clinically for further changes and intervention and assist with disposition. Dakota Rosas M.D. DR: MARIAH JOB#: [id number] CC:
--- NOTE | 2020-01-16 11:08 | Infectious Diseases Prog Note ---
Assessment/Plan Assessment/Plan antibiotics : zosyn A 1. aspiration pneumonia COVID 19 negative 2. diabetes mellitus 3. hypertension P 1. d/c zosyn 2. start and continue po levoquin 5 more days 3. will follow up cultures Subjective Constitutional: Denies: fever, chills Respiratory: Denies: shortness of breath, dry cough Gastrointestinal/Abdominal: Denies: nausea, vomiting, diarrhea Musculoskeletal: Denies: pain Allergies: Coded Allergies: No Known Allergies (Unverified , 01/15/20) Objective Last 24 Hour Vital Signs Date Time Temp Pulse Resp B/P (MAP) Pulse Ox O2 Delivery O2 Flow Rate FiO2 01/16/20 09:00 Non-Rebreather 10.0 01/16/20 08:00 79 01/16/20 08:00 97.6 79 18 130/64 (86) 100 01/16/20 04:00 96.6 73 16 101/55 (70) 100 01/16/20 04:00 74 01/16/20 00:00 88 01/16/20 00:00 97.3 77 18 119/66 (83) 98 01/15/20 21:00 Non-Rebreather 10.0 01/15/20 20:00 97.7 78 20 118/64 (82) 97 01/15/20 20:00 81 01/15/20 16:00 78 01/15/20 16:00 97.8 87 22 116/65 (82) 90 01/15/20 12:00 90 01/15/20 12:00 98.8 83 22 117/68 (84) 99 Height (Feet): 5 Height (Inches): 7.00 Weight (Pounds): 155 Respiratory/Chest: lungs clear Cardiovascular: normal rate, regular rhythm, no gallop/murmur Abdomen: soft, non tender Extremities: no edema Microbiology Date/Time Source Procedure Growth Status 01/14/20 18:30 Nasopharynx SARS-CoV-2 RdRp Gene Assay - Final Complete Laboratory Tests Test 01/16/20 05:32 White Blood Count 15.7 K/UL (4.8-10.8) H Red Blood Count 3.47 M/UL (4.70-6.10) L Hemoglobin 10.5 G/DL (14.2-18.0) L Hematocrit 31.1 % (42.0-52.0) L Mean Corpuscular Volume 90 FL (80-99) Mean Corpuscular Hemoglobin 30.3 PG (27.0-31.0) Mean Corpuscular Hemoglobin Concent 33.8 G/DL (32.0-36.0) Red Cell Distribution Width 11.9 % (11.6-14.8) Platelet Count 153 K/UL (150-450) Mean Platelet Volume 8.9 FL (6.5-10.1) Neutrophils (%) (Auto) 81.3 % (45.0-75.0) H Lymphocytes (%) (Auto) 12.6 % (20.0-45.0) L Monocytes (%) (Auto) 3.3 % (1.0-10.0) Eosinophils (%) (Auto) 2.2 % (0.0-3.0) Basophils (%) (Auto) 0.6 % (0.0-2.0) Sodium Level 144 MMOL/L (136-145) Potassium Level 3.7 MMOL/L (3.5-5.1) Chloride Level 110 MMOL/L (98-107) H Carbon Dioxide Level 25 MMOL/L (21-32) Anion Gap 9 mmol/L (5-15) Blood Urea Nitrogen 20 mg/dL (7-18) H Creatinine 1.2 MG/DL (0.55-1.30) Estimat Glomerular Filtration Rate 59.7 mL/min (>60) Glucose Level 146 MG/DL (74-106) H Calcium Level 8.7 MG/DL (8.5-10.1) Magnesium Level 2.0 MG/DL (1.8-2.4) Total Bilirubin 0.3 MG/DL (0.2-1.0) Aspartate Amino Transf (AST/SGOT) 30 U/L (15-37) Alanine Aminotransferase (ALT/SGPT) 16 U/L (12-78) Alkaline Phosphatase 40 U/L (46-116) L Total Protein 6.3 G/DL (6.4-8.2) L Albumin 2.9 G/DL (3.4-5.0) L Globulin 3.4 g/dL Albumin/Globulin Ratio 0.9 (1.0-2.7) L Thyroid Stimulating Hormone (TSH) 5.413 uiU/mL (0.358-3.740) Current Medications Medications (Trade) Dose Ordered Sig/Zulema Route PRN Reason Start Time Stop Time Status Last Admin Dose Admin Acetaminophen (Tylenol) 500 mg Q4H PRN ORAL Mild Pain (Pain Scale 1-3) 01/14/20 21:30 02/13/20 21:29 Dextrose (Dextrose 50%) 25 ml Q30M PRN IV Hypoglycemia 01/15/20 16:15 04/14/20 16:14 Dextrose (Dextrose 50%) 50 ml Q30M PRN IV Hypoglycemia 01/15/20 16:15 04/14/20 16:14 Escitalopram Oxalate (Lexapro) 10 mg DAILY ORAL 01/16/20 09:00 02/15/20 08:59 01/16/20 08:39 Heparin Sodium (Porcine) (Heparin 5000 units/ml) 5,000 units EVERY 12 HOURS SUBQ 01/15/20 09:00 02/29/20 08:59 01/16/20 08:41 Insulin Aspart (NovoLOG) BEFORE MEALS AND HS SUBQ 01/15/20 17:00 04/14/20 16:59 01/15/20 21:15 Levothyroxine Sodium (Synthroid) 50 mcg DAILY@0630 ORAL 01/17/20 06:30 02/16/20 06:29 Mirtazapine (Remeron) 7.5 mg BEDTIME ORAL 01/15/20 21:00 04/14/20 20:59 01/15/20 21:09 Ondansetron HCl (Zofran) 4 mg Q6H PRN IVP Nausea & Vomiting 01/14/20 21:30 02/13/20 21:29 Pantoprazole (Protonix) 40 mg DAILY ORAL 01/15/20 09:00 02/14/20 08:59 01/16/20 08:39 Piperacillin Sod/ Tazobactam Sod 3.375 gm/Sodium Chloride 110 ml @ 27.5 mls/hr EVERY 8 HOURS IVPB 01/15/20 06:00 01/22/20 05:59 01/16/20 05:57 Potassium Chloride 20 meq/ Sodium Chloride 1,010 ml @ 75 mls/hr [id number] IV 01/15/20 17:00 02/14/20 16:59 01/16/20 05:58 Mary Monte MD Jan 16, 2020 11:08
[2020-01-16 12:00] VITALS: BP 122/67
[2020-01-16] MEDS: Levofloxacin 500mg tab ORAL SCH (12:35)
--- NOTE | 2020-01-16 13:51 | Diagnostic Imaging Report ---
Indication: Cough Technique: One view of the chest Comparison: 01/14/2020 Findings: Reticular and hazy infiltrates are seen at both lung bases, new or increased since the prior study. The heart size is normal. The pleural spaces are clear Impression: New or increased bilateral infiltrates, since previous exam of 01/14/2020
[2020-01-16] MEDS ORDERED: NS 275ml ONE (15:48)
[2020-01-16] MEDS ORDERED: Tubing IV Secondary IV ONE (15:48)
[2020-01-16 16:00] VITALS: BP 124/67
[2020-01-16 20:00] VITALS: BP 118/65
--- NOTE | 2020-01-16 22:31 | Psych Consult Progress Note ---
Psychiatry Progress Note Psychiatry Progress Note Subjective episodes of confusion pulled out his IV and wanted to leave no si slept well Medications Current Medications Medications (Trade) Dose Ordered Sig/Zulema Route PRN Reason Start Time Stop Time Status Last Admin Dose Admin Acetaminophen (Tylenol) 500 mg Q4H PRN ORAL Mild Pain (Pain Scale 1-3) 01/14/20 21:30 02/13/20 21:29 01/16/20 21:56 Dextrose (Dextrose 50%) 25 ml Q30M PRN IV Hypoglycemia 01/15/20 16:15 04/14/20 16:14 Dextrose (Dextrose 50%) 50 ml Q30M PRN IV Hypoglycemia 01/15/20 16:15 04/14/20 16:14 Escitalopram Oxalate (Lexapro) 10 mg DAILY ORAL 01/16/20 09:00 02/15/20 08:59 01/16/20 08:39 Heparin Sodium (Porcine) (Heparin 5000 units/ml) 5,000 units EVERY 12 HOURS SUBQ 01/15/20 09:00 02/29/20 08:59 01/16/20 20:39 Insulin Aspart (NovoLOG) BEFORE MEALS AND HS SUBQ 01/15/20 17:00 04/14/20 16:59 01/16/20 20:38 Levofloxacin (Levaquin) 500 mg DAILY ORAL 01/16/20 12:00 01/23/20 11:59 01/16/20 12:35 Levothyroxine Sodium (Synthroid) 50 mcg DAILY@0630 ORAL 01/17/20 06:30 02/16/20 06:29 Mirtazapine (Remeron) 7.5 mg BEDTIME ORAL 01/15/20 21:00 04/14/20 20:59 01/16/20 20:40 Ondansetron HCl (Zofran) 4 mg Q6H PRN IVP Nausea & Vomiting 01/14/20 21:30 02/13/20 21:29 Pantoprazole (Protonix) 40 mg DAILY ORAL 01/15/20 09:00 02/14/20 08:59 01/16/20 08:39 Potassium Chloride 20 meq/ Sodium Chloride 1,010 ml @ 75 mls/hr [id number] IV 01/15/20 17:00 02/14/20 16:59 01/16/20 20:36 Neurological/Psychiatric: Reports: anxiety, depressed Allergies: Coded Allergies: No Known Allergies (Unverified , 01/15/20) Objective Data Height (Feet): 5 Height (Inches): 7.00 Weight (Pounds): 155 General Appearance: WD/WN, alert, confused Additional Comments: alert and oriented times self, place, situation. His mood is depressed. Affect is flat. Thought process, linear and goal oriented. Thought content, denies any suicidal or homicidal ideation. Cognition is improved. Insight and judgment is fair. Assessment/Plan Status: stable Assessment/Plan: ASSESSMENT: [place] I Major depressive disorder. Anxiety disorder. [place] II Deferred. [place] III Status post overdose on Restoril. [place] IV Low. [place] V 50 PLAN: 1. Lexapro 10 mg in the morning. 2. Remeron 7.5 at bedtime. 3. We will continue to follow and readjust the medications. Dean Ferris MD Jan 16, 2020 22:31
[2020-01-17] VITALS: BP 113/58
--- NOTE | 2020-01-17 01:15 | Cardiology Progress Note ---
Subjective DATE OF SERVICE: Jan 16, 2020 Very weak, but alert WBC up TSH was 5.64 CXR with worsening infiltrates Tolerating po intake No N/V/D +cough noted MONITOR: sinus tachycardia to NSR Objective Last 24 Hour Vital Signs Date Time Temp Pulse Resp B/P (MAP) Pulse Ox O2 Delivery O2 Flow Rate FiO2 01/17/20 00:00 98.1 69 17 113/58 (76) 97 01/16/20 22:26 98.1 01/16/20 21:00 Nasal Cannula 3.0 01/16/20 20:00 99.5 72 19 118/65 (82) 95 01/16/20 20:00 72 01/16/20 16:00 73 01/16/20 16:00 97.9 73 18 124/67 (86) 97 01/16/20 12:00 70 01/16/20 12:00 97.6 70 18 122/67 (85) 96 01/16/20 09:00 Non-Rebreather 10.0 01/16/20 08:00 79 01/16/20 08:00 97.6 79 18 130/64 (86) 100 01/16/20 04:00 96.6 73 16 101/55 (70) 100 01/16/20 04:00 74 ROS: unchanged from my dictation for 01/14/20 HEENT: normal ENT inspection - dry MM's RHYTHM: NSR, ST LUNGS: diminished breath sounds, right-sided rhonchi CARDIAC: normal rate, regular rhythm, normal S1 and S2 ABDOMEN: normal bowel sounds, soft EXTREMITIES: no calf tenderness, No edema Laboratory Tests Test 01/16/20 05:32 White Blood Count 15.7 K/UL (4.8-10.8) H Red Blood Count 3.47 M/UL (4.70-6.10) L Hemoglobin 10.5 G/DL (14.2-18.0) L Hematocrit 31.1 % (42.0-52.0) L Mean Corpuscular Volume 90 FL (80-99) Mean Corpuscular Hemoglobin 30.3 PG (27.0-31.0) Mean Corpuscular Hemoglobin Concent 33.8 G/DL (32.0-36.0) Red Cell Distribution Width 11.9 % (11.6-14.8) Platelet Count 153 K/UL (150-450) Mean Platelet Volume 8.9 FL (6.5-10.1) Neutrophils (%) (Auto) 81.3 % (45.0-75.0) H Lymphocytes (%) (Auto) 12.6 % (20.0-45.0) L Monocytes (%) (Auto) 3.3 % (1.0-10.0) Eosinophils (%) (Auto) 2.2 % (0.0-3.0) Basophils (%) (Auto) 0.6 % (0.0-2.0) Sodium Level 144 MMOL/L (136-145) Potassium Level 3.7 MMOL/L (3.5-5.1) Chloride Level 110 MMOL/L (98-107) H Carbon Dioxide Level 25 MMOL/L (21-32) Anion Gap 9 mmol/L (5-15) Blood Urea Nitrogen 20 mg/dL (7-18) H Creatinine 1.2 MG/DL (0.55-1.30) Estimat Glomerular Filtration Rate 59.7 mL/min (>60) Glucose Level 146 MG/DL (74-106) H Calcium Level 8.7 MG/DL (8.5-10.1) Magnesium Level 2.0 MG/DL (1.8-2.4) Total Bilirubin 0.3 MG/DL (0.2-1.0) Aspartate Amino Transf (AST/SGOT) 30 U/L (15-37) Alanine Aminotransferase (ALT/SGPT) 16 U/L (12-78) Alkaline Phosphatase 40 U/L (46-116) L Total Protein 6.3 G/DL (6.4-8.2) L Albumin 2.9 G/DL (3.4-5.0) L Globulin 3.4 g/dL Albumin/Globulin Ratio 0.9 (1.0-2.7) L Thyroid Stimulating Hormone (TSH) 5.413 uiU/mL (0.358-3.740) Microbiology Date/Time Source Procedure Growth Status 01/14/20 18:30 Nasopharynx SARS-CoV-2 RdRp Gene Assay - Final Complete Assessment/Plan Assessment/Plan Aspiration PNA Sinus Tachycardia No clinical signs of acute CHF Probable chronic diastolic CHF Mild dehydration/hypernatremia NIDDM with rising glucose Negative urine tox screen Hypertension Hypothyroidism Ac/chr diastolic CHF Hypotonic IVF - dextrose discont'd Abx per ID Swallow eval Trend BNP DC telemetry Thyroid replacement Dieudonne Maldonado MD Jan 17, 2020 01:15
[2020-01-17 04:00] VITALS: BP 143/78
--- NOTE | 2020-01-17 04:15 | Consultation ---
DATE OF CONSULTATION: 01/14/2020 CARDIOLOGY CONSULTATION CONSULTING PHYSICIAN: Dieudonne Maldonado MD. REFERRING PHYSICIAN: Serg Lynch MD. REASON FOR CONSULTATION: Tachycardia. HISTORY OF PRESENT ILLNESS: This 69-year-old male with history of hypertension apparently was found outside a hotel room with empty bottle of his temazepam. He apparently told family members that he was trying to hurt himself. He has been increasingly depressed apparently over the course of the COVID-19 crisis due to isolation. Of note the patient's tox screen in the emergency room was negative for benzodiazepines. He was noted to be tachycardic with abnormal pulmonary findings and I have been asked to address cardiovascular care. PAST MEDICAL HISTORY: Includes hypertension, type 2 diabetes, and hypothyroidism. MEDICATIONS: Reviewed. ALLERGIES: None. FAMILY HISTORY: Noncontributory. SOCIAL HISTORY: Denies smoking, alcohol, or substance abuse. REVIEW OF SYSTEMS: Notable for depression. No history of stroke. No history of myocardial infarction or endocarditis. No history of COPD. No history of thyroid disorder. He is on oral hypoglycemics. He has not noted any change in bowel habits. There is no known history of prostate cancer or elevated PSA. PHYSICAL EXAMINATION: VITAL SIGNS: Blood pressure 145/80, heart rate 106, respirations 22, temperature 101. Oxygen saturation 98% on 15 liters. HEENT: Conjunctivae are pink. Oropharynx clear. Mucous membranes dry. NECK: Supple. No accessory muscle use. LUNGS: Bilateral breath sounds and rhonchi right greater than left. CARDIAC: Regular rhythm. Rapid rate. Normal S1, S2 with a fourth heart sound. ABDOMEN: Soft. EXTREMITIES: Trace edema. LABORATORY AND DIAGNOSTIC DATA: EKG with sinus tachycardia. No ST abnormalities. Chest x-ray with right-sided infiltrate. Sodium 145, potassium 3.9, bicarb 26, BUN 34, creatinine 1. White count 18, hemoglobin 13. IMPRESSION: 1. Possible suicidal ideation. 2. Sinus tachycardia. 3. Hypovolemia and dehydration. 4. Aspiration versus community-acquired pneumonia. 5. History of type 2 diabetes mellitus. 6. History of hypothyroidism. 7. Leukocytosis. PLAN: 1. Respiratory hygiene. 2. Antimicrobials. 3. Oxygenation. 4. DVT prophylaxis. 5. Psychiatric monitoring. 6. Cardiac monitoring. 7. Full thyroid panel. 8. We will follow. Dieudonne Xuan Maldonado DR: APOLONIA JOB#: [id number] CC:
[2020-01-17] MEDS: NovoLOG Insulin Flexpen SUBQ SCH ×3 (06:10→16:35)
[2020-01-17 07:46] LABS: EOSINOPHILS % (AUTO) 3.3 % (0.0-3.0); HEMATOCRIT 30.5 % (42.0-52.0); HEMOGLOBIN 10.5 G/DL (14.2-18.0); LYMPHOCYTES % (AUTO) 13.9 % (20.0-45.0); MEAN CORPUSCULAR VOLUME 87 FL (80-99); MONOCYTES % (AUTO) 5.5 % (1.0-10.0); NEUTROPHILS % (AUTO) 76.4 % (45.0-75.0); PLATELET COUNT 161 K/UL (150-450); RED BLOOD COUNT 3.48 M/UL (4.70-6.10); RED CELL DISTRIBUTION WIDTH 11.7 % (11.6-14.8); WHITE BLOOD COUNT 12.1 K/UL (4.8-10.8)
[2020-01-17 07:50] LABS: ALANINE AMINOTRANSFERASE 20 U/L (12-78); ALBUMIN 2.8 G/DL (3.4-5.0); ALBUMIN/GLOBULIN RATIO 0.8 (1.0-2.7); ALKALINE PHOSPHATASE 42 U/L (46-116); ANION GAP 9 mmol/L (5-15); ASPARTATE AMINO TRANSFERASE 26 U/L (15-37); BILIRUBIN,TOTAL 0.3 MG/DL (0.2-1.0); BLOOD UREA NITROGEN 20 mg/dL (7-18); CALCIUM 8.6 MG/DL (8.5-10.1); CARBON DIOXIDE 25 MMOL/L (21-32); CHLORIDE 110 MMOL/L (98-107); CREATININE 1.1 MG/DL (0.55-1.30); POTASSIUM 4.1 MMOL/L (3.5-5.1); SODIUM 144 MMOL/L (136-145)
[2020-01-17 08:00] VITALS: BP 127/70
[2020-01-17] MEDS: Levofloxacin 500mg tab ORAL SCH (08:20)
[2020-01-17] MEDS: Heparin 5000 units/ml inj SUBQ SCH (08:21)
--- NOTE | 2020-01-17 08:58 | General Progress Note ---
Assessment/Plan Problem List: (1) Aspiration pneumonia ICD Codes: J69.0 - Pneumonitis due to inhalation of food and vomit SNOMED: 580898673 (2) Sepsis ICD Codes: A41.9 - Sepsis, unspecified organism SNOMED: 72836214 (3) Elevated WBC count ICD Codes: D72.829 - Elevated white blood cell count, unspecified SNOMED: 091637509, 413840546 (4) Benzodiazepine overdose ICD Codes: T42.4X1A - Poisoning by benzodiazepines, accidental (unintentional) , initial encounter SNOMED: 815764469, 574091364 (5) Febrile illness ICD Codes: R50.9 - Fever, unspecified SNOMED: 181270479, 559568887 (6) Altered mental status ICD Codes: R41.82 - Altered mental status, unspecified SNOMED: 243119050, 865254331 Status: stable Assessment/Plan: cont iv abx wean fio2 check swallow eval monitor cxr follow up cultures iv abx per ID dvt/stress ulcer prophylaxis psych rx thyroid replacement Possible transfer to [facility] per daughter's request Subjective ROS Limited/Unobtainable: No Constitutional: Reports: malaise, weakness HEENT: Reports: no symptoms Cardiovascular: Reports: no symptoms Respiratory: Reports: cough, shortness of breath Gastrointestinal/Abdominal: Reports: no symptoms Genitourinary: Reports: no symptoms Neurologic/Psychiatric: Reports: anxiety, depressed Endocrine: Reports: no symptoms Hematologic/Lymphatic: Reports: no symptoms Allergies: Coded Allergies: No Known Allergies (Unverified , 01/15/20) All Systems: reviewed and negative except above Subjective There have been no overnight events. Patient's oxygen saturations are improved and he is now on 3 L nasal cannula. Chest x-ray done yesterday shows worsening infiltrates. Clinically patient seems improved. Has been overall more cooperative with care but refused to be transferred to a [facility] bed last night. Objective Last 24 Hour Vital Signs Date Time Temp Pulse Resp B/P (MAP) Pulse Ox O2 Delivery O2 Flow Rate FiO2 01/17/20 04:00 98.6 69 17 143/78 (99) 96 01/17/20 00:00 98.1 69 17 113/58 (76) 97 01/16/20 22:26 98.1 01/16/20 21:00 Nasal Cannula 3.0 01/16/20 20:00 99.5 72 19 118/65 (82) 95 01/16/20 20:00 72 01/16/20 16:00 73 01/16/20 16:00 97.9 73 18 124/67 (86) 97 01/16/20 12:00 70 01/16/20 12:00 97.6 70 18 122/67 (85) 96 01/16/20 09:00 Non-Rebreather 10.0 Intake and Output 01/16/20 01/17/20 19:00 07:00 Intake Total 320 ml 340 ml Output Total 800 ml Balance -480 ml 340 ml Intake Oral 320 ml 340 ml Output Urine Total 800 ml # Voids 3 2 # Bowel Movements 3 2 Laboratory Tests 01/17/20 05:29: White Blood Count 12.1H, Red Blood Count 3.48L, Hemoglobin 10.5L, Hematocrit 30.5L, Mean Corpuscular Volume 87, Mean Corpuscular Hemoglobin 30.1, Mean Corpuscular Hemoglobin Concent 34.4, Red Cell Distribution Width 11.7, Platelet Count 161, Mean Platelet Volume 7.8, Neutrophils (%) (Auto) 76.4H, Lymphocytes ( %) (Auto) 13.9L, Monocytes (%) (Auto) 5.5, Eosinophils (%) (Auto) 3.3H, Basophils (%) (Auto) 1.0, Sodium Level 144, Potassium Level 4.1, Chloride Level 110H, Carbon Dioxide Level 25, Anion Gap 9, Blood Urea Nitrogen 20H, Creatinine 1.1, Estimat Glomerular Filtration Rate > 60, Glucose Level 152H, Calcium Level 8.6, Total Bilirubin 0.3, Aspartate Amino Transf (AST/SGOT) 26, Alanine Aminotransferase (ALT/SGPT) 20, Alkaline Phosphatase 42L, Total Protein 6.5, Albumin 2.8L, Globulin 3.7, Albumin/Globulin Ratio 0.8L Height (Feet): 5 Height (Inches): 7.00 Weight (Pounds): 155 Objective General Appearance: WD/WN, alert, confused EENT: normal ENT inspection Neck: non-tender, normal alignment, supple Cardiovascular: normal rate, regular rhythm Respiratory/Chest: crackles/rales, rhonchi - right Abdomen: normal bowel sounds, non tender, soft, no organomegaly Edema: no edema noted Arm (L), no edema noted Arm (R) Neurologic: corporate development officer II-XII grossly normal, alert, responsive Skin: normal pigmentation Lymphatic: normal anterior cervical (L), normal anterior cervical (R) Serg Lynch MD Jan 17, 2020 08:58
[2020-01-17] MEDS: Potassium Chloride 20 MEQ in 1/2 NS 1000ml 1,000 ML IV SCH (09:24)
--- NOTE | 2020-01-17 10:33 | Infectious Diseases Prog Note ---
Assessment/Plan Assessment/Plan antibiotics : levoquin A 1. aspiration pneumonia COVID 19 negative 2. diabetes mellitus 3. hypertension P 1. continue po levoquin 4 more days 2. will follow up cultures Subjective Constitutional: Denies: fever, chills Respiratory: Denies: shortness of breath, dry cough Gastrointestinal/Abdominal: Denies: nausea, vomiting, diarrhea Musculoskeletal: Denies: pain Allergies: Coded Allergies: No Known Allergies (Unverified , 01/15/20) Objective Last 24 Hour Vital Signs Date Time Temp Pulse Resp B/P (MAP) Pulse Ox O2 Delivery O2 Flow Rate FiO2 01/17/20 09:00 Nasal Cannula 3.0 01/17/20 08:00 97.7 77 18 127/70 (89) 97 01/17/20 04:00 98.6 69 17 143/78 (99) 96 01/17/20 00:00 98.1 69 17 113/58 (76) 97 01/16/20 22:26 98.1 01/16/20 21:00 Nasal Cannula 3.0 01/16/20 20:00 99.5 72 19 118/65 (82) 95 01/16/20 20:00 72 01/16/20 16:00 73 01/16/20 16:00 97.9 73 18 124/67 (86) 97 01/16/20 12:00 70 01/16/20 12:00 97.6 70 18 122/67 (85) 96 Height (Feet): 5 Height (Inches): 7.00 Weight (Pounds): 155 Respiratory/Chest: lungs clear Cardiovascular: normal rate, regular rhythm, no gallop/murmur Abdomen: soft, non tender Extremities: no edema Microbiology Date/Time Source Procedure Growth Status 01/15/20 05:35 Blood Blood Culture - Preliminary NO GROWTH AFTER 24 HOURS Resulted 01/15/20 05:25 Blood Blood Culture - Preliminary NO GROWTH AFTER 24 HOURS Resulted 01/15/20 11:30 Sputum Gram Stain Pending Resulted 01/15/20 11:30 Sputum Sputum Culture - Preliminary NORMAL UPPER RESPIRATORY TRINI AT 24 ... Resulted 01/14/20 18:30 Nasopharynx SARS-CoV-2 RdRp Gene Assay - Final Complete Laboratory Tests Test 01/17/20 05:29 White Blood Count 12.1 K/UL (4.8-10.8) H Red Blood Count 3.48 M/UL (4.70-6.10) L Hemoglobin 10.5 G/DL (14.2-18.0) L Hematocrit 30.5 % (42.0-52.0) L Mean Corpuscular Volume 87 FL (80-99) Mean Corpuscular Hemoglobin 30.1 PG (27.0-31.0) Mean Corpuscular Hemoglobin Concent 34.4 G/DL (32.0-36.0) Red Cell Distribution Width 11.7 % (11.6-14.8) Platelet Count 161 K/UL (150-450) Mean Platelet Volume 7.8 FL (6.5-10.1) Neutrophils (%) (Auto) 76.4 % (45.0-75.0) H Lymphocytes (%) (Auto) 13.9 % (20.0-45.0) L Monocytes (%) (Auto) 5.5 % (1.0-10.0) Eosinophils (%) (Auto) 3.3 % (0.0-3.0) H Basophils (%) (Auto) 1.0 % (0.0-2.0) Sodium Level 144 MMOL/L (136-145) Potassium Level 4.1 MMOL/L (3.5-5.1) Chloride Level 110 MMOL/L (98-107) H Carbon Dioxide Level 25 MMOL/L (21-32) Anion Gap 9 mmol/L (5-15) Blood Urea Nitrogen 20 mg/dL (7-18) H Creatinine 1.1 MG/DL (0.55-1.30) Estimat Glomerular Filtration Rate > 60 mL/min (>60) Glucose Level 152 MG/DL (74-106) H Calcium Level 8.6 MG/DL (8.5-10.1) Total Bilirubin 0.3 MG/DL (0.2-1.0) Aspartate Amino Transf (AST/SGOT) 26 U/L (15-37) Alanine Aminotransferase (ALT/SGPT) 20 U/L (12-78) Alkaline Phosphatase 42 U/L (46-116) L Total Protein 6.5 G/DL (6.4-8.2) Albumin 2.8 G/DL (3.4-5.0) L Globulin 3.7 g/dL Albumin/Globulin Ratio 0.8 (1.0-2.7) L Current Medications Medications (Trade) Dose Ordered Sig/Zulema Route PRN Reason Start Time Stop Time Status Last Admin Dose Admin Acetaminophen (Tylenol) 500 mg Q4H PRN ORAL Mild Pain (Pain Scale 1-3) 01/14/20 21:30 02/13/20 21:29 01/16/20 21:56 Dextrose (Dextrose 50%) 25 ml Q30M PRN IV Hypoglycemia 01/15/20 16:15 04/14/20 16:14 Dextrose (Dextrose 50%) 50 ml Q30M PRN IV Hypoglycemia 01/15/20 16:15 04/14/20 16:14 Escitalopram Oxalate (Lexapro) 10 mg DAILY ORAL 01/16/20 09:00 02/15/20 08:59 01/17/20 08:19 Heparin Sodium (Porcine) (Heparin 5000 units/ml) 5,000 units EVERY 12 HOURS SUBQ 01/15/20 09:00 02/29/20 08:59 01/17/20 08:21 Insulin Aspart (NovoLOG) BEFORE MEALS AND HS SUBQ 01/15/20 17:00 04/14/20 16:59 01/17/20 06:10 Levofloxacin (Levaquin) 500 mg DAILY ORAL 01/16/20 12:00 01/23/20 11:59 01/17/20 08:20 Levothyroxine Sodium (Synthroid) 50 mcg DAILY@0630 ORAL 01/17/20 06:30 02/16/20 06:29 01/17/20 06:09 Mirtazapine (Remeron) 7.5 mg BEDTIME ORAL 01/15/20 21:00 04/14/20 20:59 01/16/20 20:40 Ondansetron HCl (Zofran) 4 mg Q6H PRN IVP Nausea & Vomiting 01/14/20 21:30 02/13/20 21:29 Pantoprazole (Protonix) 40 mg DAILY ORAL 01/15/20 09:00 02/14/20 08:59 01/17/20 08:19 Potassium Chloride 20 meq/ Sodium Chloride 1,010 ml @ 75 mls/hr [id number] IV 01/15/20 17:00 02/14/20 16:59 01/16/20 20:36 Mary Monte MD Jan 17, 2020 10:33
[2020-01-17 12:00] VITALS: BP 121/66
[2020-01-17 16:00] VITALS: BP 111/63
--- NOTE | 2020-01-17 17:25 | Pulmonology Progress Note ---
Subjective ROS Limited/Unobtainable: No Constitutional: Denies: fever, chills Gastrointestinal/Abdominal: Denies: nausea, vomiting, diarrhea Musculoskeletal: Denies: pain Allergies: Coded Allergies: No Known Allergies (Unverified , 01/15/20) All Systems: reviewed and negative except above Subjective care noted and reviewed seen earlier on oxygen Objective Last 24 Hour Vital Signs Date Time Temp Pulse Resp B/P (MAP) Pulse Ox O2 Delivery O2 Flow Rate FiO2 01/17/20 12:00 97.4 69 18 121/66 (84) 96 01/17/20 09:00 Nasal Cannula 3.0 01/17/20 08:00 97.7 77 18 127/70 (89) 97 01/17/20 04:00 98.6 69 17 143/78 (99) 96 01/17/20 00:00 98.1 69 17 113/58 (76) 97 01/16/20 22:26 98.1 01/16/20 21:00 Nasal Cannula 3.0 01/16/20 20:00 99.5 72 19 118/65 (82) 95 01/16/20 20:00 72 Intake and Output 01/16/20 01/17/20 19:00 07:00 Intake Total 320 ml 340 ml Output Total 800 ml Balance -480 ml 340 ml Intake Oral 320 ml 340 ml Output Urine Total 800 ml # Voids 3 2 # Bowel Movements 3 2 Objective WDWN NAD reduced breath sounds bilaterally with some rhonchi [id number] without MRG NABS nontender no HSM no CCE confused Microbiology Date/Time Source Procedure Growth Status 01/15/20 05:35 Blood Blood Culture - Preliminary NO GROWTH AFTER 24 HOURS Resulted 01/15/20 05:25 Blood Blood Culture - Preliminary NO GROWTH AFTER 24 HOURS Resulted 01/15/20 11:30 Sputum Gram Stain - Final Resulted 01/15/20 11:30 Sputum Sputum Culture - Preliminary NORMAL UPPER RESPIRATORY TRINI AT 24 ... Resulted 01/14/20 18:30 Nasopharynx SARS-CoV-2 RdRp Gene Assay - Final Complete Laboratory Tests 01/16/20 20:07: POC Whole Blood Glucose 196H 01/17/20 05:29: White Blood Count 12.1H, Red Blood Count 3.48L, Hemoglobin 10.5L, Hematocrit 30.5L, Mean Corpuscular Volume 87, Mean Corpuscular Hemoglobin 30.1, Mean Corpuscular Hemoglobin Concent 34.4, Red Cell Distribution Width 11.7, Platelet Count 161, Mean Platelet Volume 7.8, Neutrophils (%) (Auto) 76.4H, Lymphocytes ( %) (Auto) 13.9L, Monocytes (%) (Auto) 5.5, Eosinophils (%) (Auto) 3.3H, Basophils (%) (Auto) 1.0, Sodium Level 144, Potassium Level 4.1, Chloride Level 110H, Carbon Dioxide Level 25, Anion Gap 9, Blood Urea Nitrogen 20H, Creatinine 1.1, Estimat Glomerular Filtration Rate > 60, Glucose Level 152H, Calcium Level 8.6, Total Bilirubin 0.3, Aspartate Amino Transf (AST/SGOT) 26, Alanine Aminotransferase (ALT/SGPT) 20, Alkaline Phosphatase 42L, Total Protein 6.5, Albumin 2.8L, Globulin 3.7, Albumin/Globulin Ratio 0.8L Current Medications Medications (Trade) Dose Ordered Sig/Zulema Route PRN Reason Start Time Stop Time Status Last Admin Dose Admin Acetaminophen (Tylenol) 500 mg Q4H PRN ORAL Mild Pain (Pain Scale 1-3) 01/14/20 21:30 02/13/20 21:29 01/16/20 21:56 Dextrose (Dextrose 50%) 25 ml Q30M PRN IV Hypoglycemia 01/15/20 16:15 04/14/20 16:14 Dextrose (Dextrose 50%) 50 ml Q30M PRN IV Hypoglycemia 01/15/20 16:15 04/14/20 16:14 Escitalopram Oxalate (Lexapro) 10 mg DAILY ORAL 01/16/20 09:00 02/15/20 08:59 01/17/20 08:19 Heparin Sodium (Porcine) (Heparin 5000 units/ml) 5,000 units EVERY 12 HOURS SUBQ 01/15/20 09:00 02/29/20 08:59 01/17/20 08:21 Insulin Aspart (NovoLOG) BEFORE MEALS AND HS SUBQ 01/15/20 17:00 04/14/20 16:59 01/17/20 16:35 Levofloxacin (Levaquin) 500 mg DAILY ORAL 01/16/20 12:00 01/23/20 11:59 01/17/20 08:20 Levothyroxine Sodium (Synthroid) 50 mcg DAILY@0630 ORAL 01/17/20 06:30 02/16/20 06:29 01/17/20 06:09 Mirtazapine (Remeron) 7.5 mg BEDTIME ORAL 01/15/20 21:00 04/14/20 20:59 01/16/20 20:40 Ondansetron HCl (Zofran) 4 mg Q6H PRN IVP Nausea & Vomiting 01/14/20 21:30 02/13/20 21:29 Pantoprazole (Protonix) 40 mg DAILY ORAL 01/15/20 09:00 02/14/20 08:59 01/17/20 08:19 Potassium Chloride 20 meq/ Sodium Chloride 1,010 ml @ 75 mls/hr [id number] IV 01/15/20 17:00 02/14/20 16:59 01/16/20 20:36 Assessment/Plan Assessment/Plan Possible suicidal attempt, hypoxemia likely aspiration pneumonia, hypertension, diabetes, and toxic metabolic encephalopathy. PLAN antibiotics monitor imaging oxygen therapy respiratory care impression, plan, and exam edited and reviewed in detail care discussed with Dakota Hassan MD Jan 17, 2020 17:24
[2020-01-17] MEDS ORDERED: DICYCLOMINE HCL10 MG ORAL (17:37)
[2020-01-17] MEDS ORDERED: OMEPRAZOLE40 M1 ORAL (17:37)
[2020-01-17] MEDS ORDERED: VOLTAREN ARTHRI20 GM TP (17:37)
[2020-01-17] MEDS ORDERED: LIDODERM700 M1 TOPIC (17:37)
[2020-01-17] MEDS ORDERED: VASCEPA1 GM PO (17:37)
[2020-01-17] MEDS ORDERED: FUROSEMIDE40 MG ORAL (17:37)
[2020-01-17] MEDS ORDERED: GLIPIZIDE-METF1 EAC1 PO (17:37)
[2020-01-17] MEDS ORDERED: LOSARTAN POTASS50 MG ORAL (17:37)
[2020-01-17] MEDS ORDERED: ASPIRIN81 MG ORAL (17:37)
[2020-01-17] MEDS ORDERED: ZENPEP DR 10,01 EACH PO (17:37)
[2020-01-17] MEDS ORDERED: KLONOPIN0.5 MG ORAL (17:37)
[2020-01-17] MEDS ORDERED: PEPTO-BISM262 MG/15 PO (17:50)
--- NOTE | 2020-01-17 22:08 | Psych Consult Progress Note ---
Psychiatry Progress Note Psychiatry Progress Note Subjective doing better today denied si again latvian speaking rn translated the pt speaks nigerien as well slept well Neurological/Psychiatric: Reports: anxiety, depressed Allergies: Coded Allergies: No Known Allergies (Unverified , 01/15/20) Objective Data Height (Feet): 5 Height (Inches): 7.00 Weight (Pounds): 155 General Appearance: WD/WN, alert, confused Additional Comments: alert and oriented times self, place, situation. His mood is depressed. Affect is flat. Thought process, linear and goal oriented. Thought content, denies any suicidal or homicidal ideation. Cognition is improved. Insight and judgment is fair. Assessment/Plan [place] I: ASSESSMENT: [place] I Major depressive disorder. Anxiety disorder. [place] II Deferred. [place] III Status post overdose on Restoril. [place] IV Low. [place] V 50 PLAN: 1. Lexapro 10 mg in the morning. 2. Remeron 7.5 at bedtime. 3. We will continue to follow and readjust the medications. Status: stable Status Narrative ASSESSMENT: [place] I Major depressive disorder. Anxiety disorder. [place] II Deferred. [place] III Status post overdose on Restoril. [place] IV Low. [place] V 50 PLAN: 1. Lexapro 10 mg in the morning. 2. Remeron 7.5 at bedtime. 3. We will continue to follow and readjust the medications. Assessment/Plan: ASSESSMENT: [place] I Major depressive disorder. Anxiety disorder. [place] II Deferred. [place] III Status post overdose on Restoril. [place] IV Low. [place] V 50 PLAN: 1. Lexapro 10 mg in the morning. 2. Remeron 7.5 at bedtime. 3. We will continue to follow and readjust the medications. Dean Ferris MD Jan 17, 2020 22:08
--- NOTE | 2020-01-18 02:11 | Cardiology Progress Note ---
Subjective DATE OF SERVICE: Jan 17, 2020 anxious to go home WBC better, but was hypoxic this morning. TSH was 5.64; levothyroxine dosing adjusted CXR with worsening infiltrates Tolerating po intake No N/V/D +cough noted MONITOR: sinus tachycardia to NSR Objective Last 24 Hour Vital Signs Date Time Temp Pulse Resp B/P (MAP) Pulse Ox O2 Delivery O2 Flow Rate FiO2 01/17/20 16:00 98.2 69 18 111/63 (79) 97 01/17/20 12:00 97.4 69 18 121/66 (84) 96 01/17/20 09:00 Nasal Cannula 3.0 01/17/20 08:00 97.7 77 18 127/70 (89) 97 01/17/20 04:00 98.6 69 17 143/78 (99) 96 ROS: unchanged from my dictation for 01/14/20 HEENT: normal ENT inspection - dry MM's RHYTHM: NSR, ST LUNGS: diminished breath sounds, right-sided rhonchi CARDIAC: normal rate, regular rhythm, normal S1 and S2 ABDOMEN: normal bowel sounds, soft EXTREMITIES: no calf tenderness, No edema Laboratory Tests Test 01/17/20 05:29 White Blood Count 12.1 K/UL (4.8-10.8) H Red Blood Count 3.48 M/UL (4.70-6.10) L Hemoglobin 10.5 G/DL (14.2-18.0) L Hematocrit 30.5 % (42.0-52.0) L Mean Corpuscular Volume 87 FL (80-99) Mean Corpuscular Hemoglobin 30.1 PG (27.0-31.0) Mean Corpuscular Hemoglobin Concent 34.4 G/DL (32.0-36.0) Red Cell Distribution Width 11.7 % (11.6-14.8) Platelet Count 161 K/UL (150-450) Mean Platelet Volume 7.8 FL (6.5-10.1) Neutrophils (%) (Auto) 76.4 % (45.0-75.0) H Lymphocytes (%) (Auto) 13.9 % (20.0-45.0) L Monocytes (%) (Auto) 5.5 % (1.0-10.0) Eosinophils (%) (Auto) 3.3 % (0.0-3.0) H Basophils (%) (Auto) 1.0 % (0.0-2.0) Sodium Level 144 MMOL/L (136-145) Potassium Level 4.1 MMOL/L (3.5-5.1) Chloride Level 110 MMOL/L (98-107) H Carbon Dioxide Level 25 MMOL/L (21-32) Anion Gap 9 mmol/L (5-15) Blood Urea Nitrogen 20 mg/dL (7-18) H Creatinine 1.1 MG/DL (0.55-1.30) Estimat Glomerular Filtration Rate > 60 mL/min (>60) Glucose Level 152 MG/DL (74-106) H Calcium Level 8.6 MG/DL (8.5-10.1) Total Bilirubin 0.3 MG/DL (0.2-1.0) Aspartate Amino Transf (AST/SGOT) 26 U/L (15-37) Alanine Aminotransferase (ALT/SGPT) 20 U/L (12-78) Alkaline Phosphatase 42 U/L (46-116) L Total Protein 6.5 G/DL (6.4-8.2) Albumin 2.8 G/DL (3.4-5.0) L Globulin 3.7 g/dL Albumin/Globulin Ratio 0.8 (1.0-2.7) L Microbiology Date/Time Source Procedure Growth Status 01/15/20 05:35 Blood Blood Culture - Preliminary NO GROWTH AFTER 24 HOURS Resulted 01/15/20 05:25 Blood Blood Culture - Preliminary NO GROWTH AFTER 24 HOURS Resulted 01/15/20 11:30 Sputum Gram Stain - Final Resulted 01/15/20 11:30 Sputum Sputum Culture - Preliminary NORMAL UPPER RESPIRATORY TRINI AT 24 ... Resulted Assessment/Plan Assessment/Plan Aspiration PNA Sinus Tachycardia No clinical signs of acute CHF Probable chronic diastolic CHF Mild dehydration/hypernatremia NIDDM with rising glucose Negative urine tox screen Hypertension Hypothyroidism Ac/chr diastolic CHF Hypotonic IVF - dextrose discont'd Abx per ID Swallow eval Trend BNP DC telemetry Thyroid replacement Taper of oxygen Patient will be given script for antibiotics if he insists going home prematurely Dieudonne Parrish MD Jan 18, 2020 02:11
--- NOTE | 2020-01-18 13:09 | Discharge Summary ---
Discharge Summary Discharge Summary _ DATE OF ADMISSION: 01/14/2020 DATE OF DISCHARGE: 01/17/2020 Patient left AGAINST MEDICAL ADVICE REASON FOR ADMISSION: 69 years old male with past medical history of hypertension, diabetes mellitus, was found outside of his motel room with empty bottle of Restoril. Patient apparently told the family member that he intended to hurt himself. According to patient's son he had been depressed since being isolated at home due to COVID restriction. Upon evaluation in emergency room patient was hypoxic and placed on supplemental oxygen ; patient also had low-grade fever. Chest x-ray revealed possible right-sided infiltrate. CT of the head revealed no acute intracranial pathology. Vital signs showed fever, tachycardia ,tachypnea . Patient was hypoxic and required supplemental oxygen. Laboratory work-up revealed leukocytosis WBC 18, hemoglobin 13, hematocrit 40.2 , platelet count 210. Lactic acid 1.4 Stable electrolytes. BUN 34, creatinine 1.0. Glucose 168. Troponin negative. Stable LFT. Urinalysis revealed no evidence of urinary tract infection and and was essentially unremarkable. Urine toxicology screen was negative. Serum alcohol, Tylenol .and salicylate levels were all negative. Rapid COVID-19 was negative. In emergency department patient received empiric antibiotic and admitted for further management. CONSULTANTS: maintenance mechanic engine pulmonary Dr. Rosas ID specialist Dr. Monte psychiatrist Dr. Ferris [facility] COURSE: Patient admitted to telemetry floor. Patient started on IV fluids and empiric antibiotics. Blood cultures were negative. Sputum culture was negative. Follow-up chest x-ray revealed new or increased bilateral infiltrates since prior exam. Leukocytosis trended down , but still persisted. Fevers resolved. Antibiotics provided as per ID specialist recommendation for aspiration pneumonia. Patient noted to have a mild dehydration and was on the hypotonic IV solution. Renal parameters and electrolytes were closely monitored, electrolytes corrected as needed. Nephrotoxic's were avoided; prior to signing AMA BUN down to 20 from 34. Creatinine remained stable. Patient noted to have elevated TSH. Levothyroxine dose was uptitrated. Blood sugar was managed with sliding scale of insulin. DVT and GI prophylaxis provided. Volumes were closely monitored. No clinical signs of acute congestive heart failure as per maintenance mechanic engine . Supplemental oxygen provided and titrated to keep pulse oximetry above 92%. Pulmonary toilet provided. Psychiatric medication regimen optimized as per psychiatrist Reality orientation and supportive therapy provided. Patient denied suicidal or homicidal ideation. Cognition improved. Daughter and son came to patient room and insisted on patient to leave AGAINST MEDICAL ADVICE. The risks and consequences of signing AGAINST MEDICAL ADVICE were discussed with patient in detail. Patient verbalized understanding, nevertheless signed AMA form and left. FINAL DIAGNOSES: Hypoxemia Aspiration pneumonia Sepsis Toxic metabolic encephalopathy due to benzodiazepine overdose Possible suicidal attempt Leukocytosis-improved Altered mental status -resolved Diabetes mellitus Hypothyroidism with elevated TSH Hypertension Chronic diastolic congestive heart failure Mild dehydration - resolved Ager depressive disorder Anxiety disorder I have been assigned to dictate discharge summary for this account. I was not involved in the patient's management. Diana Schrader NP Jan 18, 2020 13:09
--- NOTE | 2020-01-19 10:39 | Cardiology Report ---
APPROVED REPORT EKG Measurement Heart [id number] <Conclusion> Sinus tachycardia with premature atrial complexes with aberrant conduction Left axis deviation Incomplete right bundle branch block Abnormal ECG
== END 2020-01-17 18:41 | disposition left against medical advice (07) | DRG 917 ==
LOC: EDBD 18:12 → EMR 19:37 → 2E 20:30 → EDBEDREQ 20:53
DX: T42.4X2A Poisoning by benzodiazepines, intentional self-harm, initial encounter (principal); J69.0 Pneumonitis due to inhalation of food and vomit; G92 Toxic encephalopathy; R40.2123 Coma scale, eyes open, to pain, at hospital admission; R40.2223 Coma scale, best verbal response, incomprehensible words, at hospital admission; R40.2343 Coma scale, best motor response, flexion withdrawal, at hospital admission; I50.32 Chronic diastolic (congestive) heart failure; I11.0 Hypertensive heart disease with heart failure; E11.9 Type 2 diabetes mellitus without complications; E86.0 Dehydration; R09.02 Hypoxemia; E03.9 Hypothyroidism, unspecified; Y92.59 Other trade areas as the place of occurrence of the external cause; F32.9 Major depressive disorder, single episode, unspecified; F41.9 Anxiety disorder, unspecified; G47.00 Insomnia, unspecified; R50.9 Fever, unspecified; R40.2353 Coma scale, best motor response, localizes pain, at hospital admission
CPT/HCPCS: 36415; 70450; 71045; 80053; 80307; 81003; 82962; 83605; 83735; 83880; 84443; 84484; 85007; 85025; 87040; 87070; 87205; 93005; 96361; 96365; 99291; G0480; J1815; J7030; U0002